=== PATIENT | female | born 1965 | race Caucasian/White ===

== ENCOUNTER 2018-11-27 06:05 | Day surgery (SDC) | payer OTHER ==
[2018-11-26 09:24] VITALS: BMI 43.0
[2018-11-27] MEDS ORDERED: MIDAZOLAM HCL 2 MG/2 ML SINGLE DOSE VIAL ONE (07:31)
[2018-11-27] MEDS ORDERED: SUCCINYLCHOLINE CHLORIDE 200 MG/10 ML SYRINGE ONE (07:31)
[2018-11-27] MEDS ORDERED: PROPOFOL 20 ML ONE (07:31)
[2018-11-27] MEDS ORDERED: DEXAMETHASONE SOD PHOSPHATE 4 MG/1 ML VIAL ONE (07:31)
[2018-11-27] MEDS ORDERED: ONDANSETRON 4 MG/2 ML VIAL ONE (07:31)
[2018-11-27] MEDS ORDERED: LIDOCAINE HCL/PF 2% SDV 5ML VIAL ONE (07:31)
[2018-11-27] MEDS ORDERED: ACETAMINOPHEN 1000 MG/100 ML VIAL (NON FORMULARY) IVPB ONE (07:53)
[2018-11-27] MEDS ORDERED: DEXTROSE 5%-0.45% SALINE 1,000 ML IV SCH (08:00)
[2018-11-27] MEDS ORDERED: ceFAZolin SODIUM 1 GM VIAL IVPB ONE (08:03)
[2018-11-27] MEDS ORDERED: ceFAZolin SODIUM 1 GM VIAL ONE (08:11)
[2018-11-27] MEDS ORDERED: BACITRACIN 15 GM TUBE TOPICAL OINTMENT ONE ×2 (08:59→09:02)
[2018-11-27 09:58] VITALS: TEMP 97.7
[2018-11-27] MEDS ORDERED: ONDANSETRON 4 MG/2 ML VIAL IVPUSH PRN (10:06)
[2018-11-27] MEDS ORDERED: oxyCODONE HCL 5 MG TABLET PO PRN ×2 (10:06)
[2018-11-27] MEDS ORDERED: LACTATED RINGERS SOLUTION 1,000 ML IV SCH (10:15)
[2018-11-27] MEDS ORDERED: oxyCODONE HCL 5 MG TABLET ONE (11:59)
[2018-11-27] MEDS ORDERED: oxyCODONE HCL 5 MG TABLET PO ONE (12:03)
[2018-11-27 13:10] VITALS: BP 127/80; PULSE 74
--- NOTE | 2018-12-01 10:55 | PATH ---
Surgical Pathology Report Patient Name: CORNELIA DOOLEY [facility]. Rec. #: [id number] /Age/Gender: 1965 (Age: 53) / F Account: [id number] Location: U SURGICAL Taken: 11/27/2018 Received: 11/27/2018 Reported: 11/30/2018 Physicians: Rolan Villareal M.D. Specimen(s) Received VAGINAL MUCOSA Clinical History Urinary incontinence Final Diagnosis VAGINAL MUCOSA, SUBURETHRAL SLING CYSTOCELE REPAIR: VAGINAL SQUAMOUS MUCOSA WITHOUT SIGNIFICANT PATHOLOGIC FINDINGS. Electronically Signed Ines Mendiola M.D. Gross Description Received in formalin labeled "vaginal mucosa" are 2 irregular fragments of brown-hester soft tissue consistent with vaginal mucosa, measuring 2.5 x 1.5 x 0.3 and 1.5 x 1.5 x 0.3 cm. Clinical Specialist sections are submitted in one cassette. MLDedrickZ/11/27/2018 liz/11/27/2018
--- NOTE | 2018-12-10 13:04 | OP ---
DATE OF OPERATION: 11/27/2018 PREOPERATIVE DIAGNOSES: Grade 2 cystocele and hypermobile urethra and stress urinary incontinence. POSTOPERATIVE DIAGNOSES: Grade 2 cystocele and hypermobile urethra and stress urinary incontinence. PROCEDURE: Cystocele repair and suburethral sling placement with cystoscopy. ANESTHESIA: General. SURGEON: Rolan Villareal MD ESTIMATED BLOOD LOSS: 25 mL. FINDINGS: A hypermobile urethra and a grade 2 cystocele. DRAINS: A Fletcher catheter. PREOPERATIVE INDICATIONS: Patient has a grade 2 cystocele and stress incontinence. She comes for repair. OPERATION: The patient was brought to the OR, placed on the table in supine position, given general anesthesia and IV antibiotics, and placed in the modified lithotomy position. The groin was prepped and draped sterilely. Fletcher catheter was placed. Pitressin was injected over the midline of the vaginal mucosa overlying the prolapsed bladder. Lateral dissection of the vaginal mucosa off the perivesical tissues was performed, and central portion of the vaginal mucosa overlying the prolapse was excised. A pursestring suture was used to compare the central defect. Next, 3-0 Vicryl suture was used for this purpose. Then, the defect was then closed in 3 layers with 2-0 Vicryl suture, bringing the sides together and ultimately the mucosa together. This affected a lifting of the bladder. Cystoscopy was performed. There was good elevation of the bladder floor, and there was good efflux seen bilaterally from the UOs. A separate incision was made over the mid portion of the urethra after injection of Pitressin. The perivesical tissues were dissected sharply off the vaginal mucosa in a lateral fashion towards the obturator canal. The bladder was emptied. Under fingertip control, a mini-sling was applied by passing a trocar under fingertip control through the vaginal mucosa towards the obturator canal bilaterally. Cystoscopy was then performed again. No evidence of perforation of the bladder, no sutures seen in the bladder, and the UOs again were functioning well. The sling was then tightened appropriately with tightening suture, and the suture was excised. The mucosa was then closed with 2-0 Vicryl suture. The Fletcher catheter and packing were left in place. The patient was woken up. ROLAN VILLAREAL M.D. [id number]
== END 2018-11-27 13:13 | disposition home or self-care (01) ==
LOC: JASU-SURG 06:05
PROVIDERS: ATTEND Urology
PROC: 0JQC0ZZ Repair Pelvic Region Subcutaneous Tissue and Fascia, Open Approach (ICD-10-PCS; principal; 2018-11-27 07:30)
PROC: 0TSD0ZZ Reposition Urethra, Open Approach (ICD-10-PCS; 2018-11-27 07:30)
DX: N81.10 Cystocele, unspecified (principal); N36.41 Hypermobility of urethra; N39.3 Stress incontinence (female) (male)
CPT/HCPCS: 57240; 57288; C1771; 88302-TC; 94760; J0131

== ENCOUNTER 2019-03-25 09:39 | Day surgery (SDC) | payer OTHER ==
[2019-03-16 09:51] VITALS: BMI 43.8
--- NOTE | 2019-03-25 09:01 | OP ---
Operative Note - Note: Operative Date: 03/25/19 Pre-Operative Diagnosis: Left knee meniscus tear Operation: Left knee arthroscopy with meniscectomy Post-Operative Diagnosis: Same as Pre-op Surgeon: Miguel Jimenez Order Administrator: Camryn Govea Anesthesia: General Operative Report Dictated: Yes
[~2019-03-25 09:39] MED LIST: BUPIVACAINE HCL/PF 0.25% (2.5MG/ML) 10 ML VIAL IJ ONE
[2019-03-25] MEDS ORDERED: LIDOCAINE HCL/PF 2% SDV 5ML VIAL ONE (10:39)
[2019-03-25] MEDS ORDERED: MIDAZOLAM HCL 2 MG/2 ML SINGLE DOSE VIAL ONE (10:39)
[2019-03-25] MEDS ORDERED: PROPOFOL 20 ML ONE ×2 (10:39→11:29)
[2019-03-25] MEDS ORDERED: SUCCINYLCHOLINE CHLORIDE 200 MG/10 ML SYRINGE ONE (10:41)
[2019-03-25] MEDS ORDERED: BUPIVACAINE HCL 0.25% 125 MG/50 ML VIAL ONE (10:46)
[2019-03-25] MEDS ORDERED: ceFAZolin SODIUM 1 GM VIAL ONE (11:34)
[2019-03-25] MEDS ORDERED: BUPIVACAINE HCL/PF 0.25% (2.5MG/ML) 10 ML VIAL IJ ONE (12:03)
[2019-03-25] MEDS ORDERED: ONDANSETRON 4 MG/2 ML VIAL ONE (12:41)
--- NOTE | 2019-03-25 12:54 | OP ---
DATE OF OPERATION: DATE OF DICTATION: 03/25/2019 POSTOPERATIVE DIAGNOSIS: Left knee medial meniscal tear. POSTOPERATIVE DIAGNOSIS: Left knee medial meniscal tear plus lateral meniscal tear. PROCEDURE: Left knee arthroscopy with partial medial, partial lateral meniscectomy. SURGEON: Miguel Call MD EXTENDED DAY TEACHER: [place] ANESTHESIA: General. POSTOPERATIVE CONDITION: Stable. COMPLICATIONS: None. INDICATIONS: This is a pleasant woman who has been suffering from left knee pain. MRI demonstrated a meniscal tear. Treatment options including nonoperative versus operative management were reviewed. Operative risks were reviewed in detail including bleeding, infection, neurovascular injury, need for further surgery, postoperative pain and stiffness, progression of osteoarthritis. We discussed medical risks such as heart attack, stroke, DVT, PE, and . I addressed the use of perioperative antibiotic and DVT prophylaxis. I addressed the patient's questions and concerns. She voiced understanding and elected to proceed. DESCRIPTION OF PROCEDURE: Patient was brought to the operating room where general anesthesia was administered. The left lower extremity was then prepped and draped in the usual sterile fashion. A preoperative dose of antibiotics was given, and the usual time-out procedure was performed. The left knee was then marked out the portals sites included. The lateral portal was now established using an 11 blade. The arthroscope was passed into the knee. An effusion was noted. The patellofemoral joint was examined demonstrating diffuse, moderate, partial-thickness chondral loss along the patellar and trochlear surfaces. The arthroscope was passed into the medial compartment. Here, there was continuous, diffuse, moderate degenerative changes on both the femoral and tibial sides. There was a complex tear noted involving the body and posterior horn of the medial meniscus. The medial portal was established under spinal needle localization. Using a meniscal shaver, this was debrided down to a stable base. The arthroscope was now passed into the lateral compartment. Here, a partial-thickness tear was noted at the root. Here, only mild chondral loss was noted on both surfaces. The meniscus tear was debrided using the shaver as well. At this point, the excess fluid was withdrawn from the knee. The portals were sutured using 3-0 nylon. A sterile dressing was placed. The patient was extubated and transferred to the recovery room in stable condition. MIGUEL CALL M.D. [id number]
[2019-03-25] MEDS ORDERED: oxyCODONE HCL 5 MG TABLET PO PRN ×2 (13:07)
[2019-03-25] MEDS ORDERED: ONDANSETRON 4 MG/2 ML VIAL IVPUSH PRN (13:07)
[2019-03-25] MEDS ORDERED: LACTATED RINGERS SOLUTION 1,000 ML IV SCH (13:15)
[2019-03-25 14:34] VITALS: BP 125/76; PULSE 77; TEMP 97.8
== END 2019-03-25 14:34 | disposition home or self-care (01) ==
LOC: FASU 09:39
PROVIDERS: ATTEND Orthopaedic Surgery Sports Medicine
PROC: 0SQD4ZZ Repair Left Knee Joint, Percutaneous Endoscopic Approach (ICD-10-PCS; principal; 2019-03-25 11:30)
DX: S83.282A Other tear of lateral meniscus, current injury, left knee, initial encounter (principal); S83.242A Other tear of medial meniscus, current injury, left knee, initial encounter; X58.XXXA Exposure to other specified factors, initial encounter; Y93.9 Activity, unspecified; Y92.9 Unspecified place or not applicable; Y99.9 Unspecified external cause status
CPT/HCPCS: 94760